=== PATIENT | male | born 1995 | race Caucasian/White ===

== ENCOUNTER 2023-04-06 22:23 | Emergency (ER) | payer OTHER ==
[~2023-04-06] VITALS: Ht 188 cm; Wt 81.6 kg
[~2023-04-06 22:23] MED LIST: ONDA4TAB11 PO
[2023-04-06] MEDS ORDERED: NYST15CR2 TP (22:51)
[2023-04-06 22:55] VITALS: BP 126/78; O2SAT 98
== END 2023-04-06 22:55 | disposition home or self-care (01) ==
LOC: ER 22:26
DX: R23.4 Changes in skin texture (principal); Z79.899 Other long term (current) drug therapy
CPT/HCPCS: A4606; A4663

== ENCOUNTER 2024-08-30 20:05 | Emergency (ER) | payer OTHER, MEDICAID ==
[~2024-08-30] VITALS: Ht 188 cm; Wt 90.7 kg
[~2024-08-30 20:05] MED LIST changes: +NYST15CR2 TP
[2024-08-30] MEDS ORDERED: METOCLOPRAMIDE HCL 10 MG/2 ML VIAL ONE (21:03)
[2024-08-30 21:14] LABS: BASOPHILS % (AUTO) 0.5 % (0.0-2.0); EOSINOPHILS % (AUTO) 0.1 % (0.0-7.0); HEMATOCRIT 41.3 % (36.7-47.1); HEMOGLOBIN 14.1 g/dL (12.5-16.3); LYMPHOCYTES # (AUTO) 0.9 K/uL (0.8-4.8); LYMPHOCYTES % (AUTO) 16.9 % (20.5-51.5); MEAN CORPUSCULAR HEMOGLOBIN 31.9 uug (23.8-33.4); MEAN CORPUSCULAR HGB CONC 34 g/dL (32.5-36.3); MEAN CORPUSCULAR VOLUME 93.6 fL (73.0-96.2); MONOCYTES # (AUTO) 0.3 K/uL (0.1-1.30); MONOCYTES % (AUTO) 5.6 % (0.0-11.0); NEUTROPHILS # (AUTO) 3.9 K/uL (1.8-8.9); NEUTROPHILS % (AUTO) 76.9 % (38.5-71.5); PLATELET COUNT (AUTO) 173 K/uL (152-348); RED BLOOD CELL COUNT(AUTO) 4.41 MIL/uL (4.06-5.63); RED CELL DISTRIBUTION WIDTH 12.9 % (12.1-16.2); WHITE BLOOD COUNT (AUTO) 5.1 K/uL (3.6-10.2)
[2024-08-30] MEDS: METOCLOPRAMIDE HCL 10 MG/2 ML VIAL IV ONE (21:15)
[2024-08-30] MEDS: IV NORMAL SALINE 1000 ML BAG IV ONE (21:15)
[2024-08-30 21:23] LABS: CALCIUM 9.8 mg/dL (8.5-10.1); POTASSIUM 4.1 mmol/L (3.5-5.1)
[2024-08-30 21:29] LABS: ALBUMIN 4.6 g/dL (3.4-5.0); BILIRUBIN,DIRECT 0.4 mg/dL (0.0-0.2); BILIRUBIN,TOTAL 2.3 mg/dL (0.2-1.0); TOTAL PROTEIN, SERUM 7.8 g/dL (6.4-8.2)
[2024-08-30] MEDS ORDERED: METO-543 PO (22:34)
[2024-08-30 22:48] VITALS: BP 121/83; O2SAT 99
== END 2024-08-30 22:45 | disposition home or self-care (01) ==
LOC: ER 20:05
DX: R11.2 Nausea with vomiting, unspecified (principal); F10.129 Alcohol abuse with intoxication, unspecified; R10.13 Epigastric pain; E86.0 Dehydration; Y90.9 Presence of alcohol in blood, level not specified
CPT/HCPCS: 99283; 96374; 96361; 80076; 80048; 83690; 83735; 85025; J2765; J7040; A4606; A4663